=== PATIENT | male | born 1955 | race Caucasian/White ===

== ENCOUNTER → 2018-03-07 14:30 | Outpatient (CLI) | payer OTHER, SELFPAY ==
[2018-03-07 17:38] LABS: BUN Creatinine Ratio 16.4 (6-22); Blood Urea Nitrogen 18 mg/dL (9-20); Estimated Glomerular Filt Rate > 60.0 mL/min (>60)
== END ==
PROVIDERS: PCP Physician Assistant; Visit Provider Otolaryngology
DX: L03.211 Cellulitis of face (principal)
CPT/HCPCS: 36415; 82565; 84520

== ENCOUNTER → 2018-03-08 14:58 | Outpatient (CLI) | payer OTHER, SELFPAY ==
--- NOTE | 2018-03-08 | DI.CT.S_ITS ---
PROCEDURE: CT FACIAL BONES W CON INDICATIONS: Left nasal wall mass TECHNIQUE: After the administration of intravenous contrast, 2.5 mm axial sections acquired from the mid-neck to the frontal sinuses, with coronal and sagittal reformats. For radiation dose reduction, the following was used: automated exposure control, adjustment of mA and/or kV according to patient size. COMPARISON: None. FINDINGS: Image quality: Excellent. Soft tissues: There is a 1.8 x 1.6 x 2.2 cm soft tissue density mass in the left nasal wall (series 7, image 34; series 5 and image 28. Lesion has overall morphology and well-defined margins. No inflammatory changes are associated with the lesion. 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 No osseous destruction is associated with the lesion. No edema or fluid collections. No enlarged lymph nodes. Vascular: Visualized vascular structures appear patent throughout. Bony vascular foramina and canals appear normal. Bones: Cerclage wire is noted in the anterior margin of the maxilla/anterior maxillary sinus ames bilaterally. Facial bones appear intact, without fractures, erosions, or destruction. Visualized portions of the skull base and auditory canals also appear normal. Sinuses: Mucosal thickening noted in the maxillary sinuses bilaterally left greater than right. Mastoid air cells are aerated. IMPRESSION: 1.8 x 1.6 x 2.2 cm soft tissue density lesion in the left nare of the nose. Finding may represent benign process such as postsurgical scar, posttraumatic neuroma/ fibroma versus malignancy. Decision to biopsy should be based on clinical assessment. Dictated by: Tamiko Piper MD, PhD on 03/08/2018 at 16:57 Approved by: Tamiko Piper MD, PhD on 03/08/2018 at 17:04
== END ==
PROVIDERS: PCP Physician Assistant; Visit Provider Otolaryngology
DX: R22.0 Localized swelling, mass and lump, head (principal)
CPT/HCPCS: 70487

== ENCOUNTER → 2018-05-23 14:47 | Outpatient (REF) | payer OTHER, SELFPAY | LOC: LAB 14:47 | PROVIDERS: PCP Physician Assistant; Visit Provider Otolaryngology | DX: K09.8 Other cysts of oral region, not elsewhere classified (principal); J34.89 Other specified disorders of nose and nasal sinuses | CPT/HCPCS: 87070; 87075; 87205 ==